=== PATIENT | male | born 1995 | race Hispanic/Latino ===

== ENCOUNTER 2018-07-31 22:40 | Emergency (ER) | payer BC | END 2018-07-31 23:58 | disposition home or self-care (01) | LOC: EDH 22:40 | DX: R07.89 Other chest pain (principal); F41.8 Other specified anxiety disorders; Z79.899 Other long term (current) drug therapy | CPT/HCPCS: 71046; 93005 ==

== ENCOUNTER 2024-02-29 20:59 | Emergency (ER) | payer BC ==
[~2024-02-29] VITALS: Ht 167.6 cm; Wt 90.3 kg
[2024-02-29 22:29] LABS: BASOPHILS # (AUTO) 0.07 K/uL (0.00-0.20); BASOPHILS % (AUTO) 0.7 % (0.0-5.0); EOSINOPHILS # (AUTO) 0.08 K/uL (0.00-0.70); EOSINOPHILS % (AUTO) 0.8 % (0.0-8.0); HEMATOCRIT 44.8 % (42-54); IMMATURE GRANULOCYTE ABSOLUTE 0.03 K/uL (0-1); LYMPHOCYTES # (AUTO) 1.9 K/uL (1.0-4.8); LYMPHOCYTES % (AUTO) 17.8 % (21.0-51.0); MEAN CORPUSCULAR HEMOGLOBIN 31.5 pg (27.0-33.0); MEAN CORPUSCULAR HGB CONC 36.2 g/dL (32.0-36.0); MEAN CORPUSCULAR VOLUME 87.2 fL (79-99); MONOCYTES # (AUTO) 0.5 K/uL (0.1-1.0); MONOCYTES % (AUTO) 5.1 % (3.0-13.0); NEUTROPHILS % (AUTO) 75.3 % (40.0-77.0); PLATELET COUNT (AUTO) 177 K/uL (130-400); RED BLOOD CELL COUNT(AUTO) 5.14 MIL/uL (4.50-6.20); RED CELL DISTRIBUTION WIDTH 12.3 % (11.0-15.5); WHITE BLOOD COUNT (AUTO) 10.6 K/uL (4.8-10.8)
--- NOTE | 2024-02-29 23:04 | EKG ---
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
[2024-02-29 23:18] LABS: INR 1.03 (0.85-1.15); PROTHROMBIN TIME 11.5 SEC (9.6-11.6)
[2024-02-29 23:19] LABS: PARTIAL THROMBOPLASTIN TIME 29.7 SEC (26.3-35.5)
[2024-02-29 23:22] LABS: APPEARANCE,URINE CLEAR (CLEAR); BILIRUBIN,URINE NEGATIVE (NEGATIVE); COLOR,URINE LIGHT-YELLOW (YELLOW); GLUCOSE, URINE (UA) NEGATIVE (NEGATIVE); KETONES,URINE 20 mg/dL (NEGATIVE); LEUKOCYTE ESTERASE ,URINE NEGATIVE Leu/uL (NEGATIVE); NITRATE,URINE NEGATIVE (NEGATIVE); OCCULT BLOOD,URINE NEGATIVE (NEGATIVE); PROTEIN,URINE NEGATIVE (NEGATIVE); UROBILINOGEN,URINE 0.2 mg/dL (0.2-1.0)
[2024-02-29 23:28] LABS: CREATININE 0.9 mg/dL (0.5-1.3); POTASSIUM 3.5 mmol/L (3.5-5.1)
[2024-02-29 23:28] LABS: ADD UA MICROSCOPIC YES; BACTERIA,URINE None Seen /HPF (None Seen); MUCUS,URINE Rare LPF (None Seen); RBC,URINE 0-1 /HPF (0-1); WBC,URINE 0-1 /HPF (0-1)
[2024-02-29] MEDS: PANTOPrazole 40 MG/VIAL IVP ONE (23:51)
[2024-02-29] MEDS: 0.9%NACL 1000ML 1,000 ML IV ONE (23:52)
--- NOTE | 2024-03-01 00:19 | ERN ---
General Chief Complaint: Other Problems Stated Complaint: C/O JAW PAIN WITH DISCOMFORT TO ARMPIT AREA Time Seen by MD: 21:03 Source: patient History of Present Illness Initial Comments PATIENT IS A 28-YEAR-OLD GENTLEMAN COMING IN TO BE EVALUATED FOR LEFT-SIDED CHEST PAIN. PATIENT STATES THAT THE CHEST PAIN HAS BEEN ONGOING FOR SEVERAL MONTHS AND IF FLUCTUATES IN INTENSITY. PATIENT ALSO STATES THAT THE PAIN HAS NEVER BEEN EVALUATED SO HE IS HERE FOR EVALUATION. HE ALSO STATES THAT HE HAS A HISTORY OF ANXIETY. Allergies: Coded Allergies: No Known Drug Allergies (Unverified Allergy, Unknown, 08/01/18) Past Medical History Past Medical History: No Pertinent History Past Surgical History: None ROS Dictation CONSTITUTIONAL: NO CHILLS, NO FEVER, NO WEAKNESS, NO DIAPHORESIS, NO MALAISE. HEAD/FACE: NO SIGNS OF TRAUMA. EENT: NO EYE PAIN, NO BLURRED VISION, NO TEARING, NO DOUBLE VISION, NO EAR PAIN, NO EAR DISCHARGE, NO NOSE PAIN, NO NASAL CONGESTION, NO THROAT PAIN, NO THROAT SWELLING, NO MOUTH PAIN. RESPIRATORY: NO COUGH, NO ORTHOPNEA, NO SOB, NO STRIDOR, NO WHEEZING. CARDIOVASCULAR: CHEST PAIN, NO EDEMA, NO PALPITATIONS, NO SYNCOPE. GASTROINTESTINAL/ABDOMINAL: NO ABDOMINAL PAIN, NO CONSTIPATION, NO DIARRHEA, NO NAUSEA, NO VOMITING. GENITOURINARY: NO ABNORMAL DISCHARGE, NO DYSURIA, NO FREQUENT URINATION, NO HEMATURIA. NO COMPLAINTS OF PAIN IN THE GENITALS. MUSCULOSKELETAL: NO BACK PAIN, NO GOUT, NO JOINT PAIN, NO JOINT SWELLING, NO MUSCLE PAIN, NO MUSCLE STIFFNESS, NO NECK PAIN. INTEGUMENTARY: NO CHANGE IN COLOR, NO CHANGE IN HAIR/NAILS, NO DRYNESS, NO LESION, NO LUMPS, NO RASH. NEUROLOGICAL/PSYCH: NO ANXIETY, NOT DEPRESSED, NO EMOTIONAL PROBLEM, NO HEADACHE, NO NUMBNESS, NO PRE-EXISTING DEFICIT, NO HISTORY OF SEIZURES, NO TREMORS, NO WEAKNESS. HEMATOLOGIC/LYMPHATIC: NOT ANEMIC, NO HISTORY OF BLOOD CLOTS, NO APPARENT BLEEDING, NO BRUISING, GLANDS NOT SWOLLEN. ALL SYSTEMS NEGATIVE, EXCEPT NOTED. Physical Exam Physical Exam Dictation VITAL SIGNS: REVIEWED. GENERAL APPEARANCE: ALERT, ORIENTED X3, NO ACUTE DISTRESS, OBESE. HEAD AND FACE: NON-TRAUMATIC. EYES: PERRL, PINK CONJUNCTIVAS, EYELID NO TRAUMA, ANTERIOR CHAMBER CLEAR. EARS: PINNAS INTACT AND NO SIGNS OF TRAUMA OR ERYTHEMA. EAR CANALS CLEAR AND NO DISCHARGE. TMS NO ERYTHEMA. NOSE: NO DISCHARGE, NO BLEEDING. OROPHARYNX: MOUTH NORMAL, TEETH NO CARIES, TONGUE PINK. PHARYNX CLEAR, NO ERYTHEMA. TONSILS NO EXUDATES, NO ABSCESSES NOTED. MUCOUS MEMBRANE MOIST. NECK: SUPPLE, NON-TENDER, NO THYROMEGALY, NO MASSES, NO JVD, NO BRUITS. BREAST: DEFERRED. CHEST: NO TENDERNESS, NO CREPITUS, NO PARADOXICAL MOVEMENT, NO RETRACTIONS. LUNGS: CLEAR, WELL-VENTILATED, SYMMETRIC, NO RALES, NO WHEEZING, NO RHONCHI, NO STRIDOR, GOOD BREATH SOUNDS BILATERALLY. HEART: REGULAR RATE, REGULAR RHYTHM, NO MURMUR, NO GALLOPS. VASCULAR: NO PERIPHERAL EDEMA. ABDOMEN: SOFT, POSITIVE BOWEL SOUNDS, NONDISTENDED, NO GUARDING, NONTENDER, NO REBOUND, NO MASSES NO HEPATOMEGALY, NO SPLENOMEGALY, NO CARTAGENA'S SIGN, NO HERNIAS. RECTAL: DEFERRED. GENITAL: DEFERRED. NEUROLOGICAL: NORMAL SPEECH, GROSS MOTOR FUNCTION INTACT, GROSS SENSORY FUNCTION INTACT. MUSCULOSKELETAL: NECK NONTENDER, FULL RANGE OF MOTION, BACK NONTENDER, FULL RANGE OF MOTION. EXTREMITIES: NONTENDER, FULL RANGE OF MOTION. SKIN: COLOR PINK, DRY, NO TURGOR, NO RASH, NO LACERATIONS, NO ABRASIONS, NO CONTUSIONS. LYMPHATICS: DEFERRED. Results Laboratory and Microbiology Lab and Micro Result Laboratory Tests Test 02/29/24 21:17 02/29/24 22:17 03/01/24 00:37 Urine Color LIGHT-YELLOW (YELLOW) Urine Appearance CLEAR (CLEAR) Urine pH 6.0 (5.0-8.0) Urine Specific [place] 1.017 (1.001-1.031) Urine Protein NEGATIVE mg/dL (NEGATIVE) Urine Glucose (UA) NEGATIVE mg/dL (NEGATIVE) Urine Ketones 20 mg/dL (NEGATIVE) H Urine Occult Blood NEGATIVE (NEGATIVE) Urine Nitrate NEGATIVE (NEGATIVE) Urine Bilirubin NEGATIVE mg/dL (NEGATIVE) Urine Urobilinogen 0.2 mg/dL (0.2-1.0) Urine Leukocyte Esterase NEGATIVE William/uL Urine RBC 0-1 /HPF (0-1) Urine WBC 0-1 /HPF (0-1) Urine Bacteria None Seen /HPF (None Seen) White Blood Count 10.6 K/uL (4.8-10.8) Red Blood Count 5.14 MIL/uL (4.50-6.20) Hemoglobin 16.2 g/dL (14.0-18.0) Hematocrit 44.8 % (42-54) Mean Corpuscular Volume 87.2 fL (79-99) Mean Corpuscular Hemoglobin 31.5 pg (27.0-33.0) Mean Corpuscular Hemoglobin Concent 36.2 g/dL (32.0-36.0) H Red Cell Distribution Width 12.3 % (11.0-15.5) Platelet Count 177 K/uL (130-400) Mean Platelet Volume 12.4 fL (7.5-10.5) H Immature Granulocyte % (Auto) 0.3 % (0-1) Neutrophils (%) (Auto) 75.3 % (40.0-77.0) Lymphocytes (%) (Auto) 17.8 % (21.0-51.0) L Monocytes (%) (Auto) 5.1 % (3.0-13.0) Eosinophils (%) (Auto) 0.8 % (0.0-8.0) Basophils (%) (Auto) 0.7 % (0.0-5.0) Neutrophils # (Auto) 8.0 K/uL (1.8-7.7) H Lymphocytes # (Auto) 1.9 K/uL (1.0-4.8) Monocytes # (Auto) 0.5 K/uL (0.1-1.0) Eosinophils # (Auto) 0.08 K/uL (0.00-0.70) Basophils # (Auto) 0.07 K/uL (0.00-0.20) Absolute Immature Granulocyte (auto 0.03 K/uL (0-1) Nucleated Red Blood Cells 0.0 % (0.0-0.19) Red Blood Cell Morphology See comments Prothrombin Time 11.5 SEC (9.6-11.6) Prothromb Time International Ratio 1.03 (0.85-1.15) Activated Partial Thromboplast Time 29.7 SEC (26.3-35.5) Sodium Level 144 mmol/L (136-145) Potassium Level 3.5 mmol/L (3.5-5.1) Chloride Level 103 mmol/L (101-111) Carbon Dioxide Level 31 mmol/L (21-32) Blood Urea Nitrogen 13 mg/dL (7-18) Creatinine 0.9 mg/dL (0.5-1.3) Glomerular Filtration Rate Calc 119 mL/min (>90) Random Glucose 133 mg/dL (70-105) H Total Calcium 8.2 mg/dL (8.5-10.1) L Magnesium Level 2.00 mg/dL (1.80-2.40) Total Creatine Kinase 479 U/L (21-232) *H 442 U/L (21-232) *H Troponin I High Sensitivity 5 ng/L (4-75) B-Type Natriuretic Peptide < 5 pg/mL (0-100) Labs Reviewed?: Yes EKG/XRAY/US/CT/MRI EKG Comment 02/29/2024 TIME 10:55 P.M. VENTRICULAR RATE 78 SINUS RHY[address] [place] [address] WAVE ELEVATION OR DEPRESSION X-RAY Comment CHEST X-RAY NAD MDM MDM: DIFFERENTIAL DIAGNOSIS: CHEST PAIN, ANXIETY, ELEVATED CK PATIENT IS A 28-YEAR-OLD GENTLEMAN COMING IN TO BE EVALUATED FOR CHRONIC CHEST PAIN. PATIENT HAS NOT BEEN EVALUATED IN THE PAST IN HIS OCCASION WILL BE EVALUATED IN CARDIAC ENZYMES AND CARDIAC WORKUP NEGATIVE FOR ACUTE FINDINGS. CK MILDLY ELEVATED PATIENT WAS HYDRATED WITH IV FLUIDS REPEAT CK IMPROVED. ED Course Orders Procedure Category Date Status Time Cbc With Differential LAB 02/29/24 Complete 21:35 Prothrombin Time With LAB 02/29/24 Complete INR 22:44 B-Type Natriuretic LAB 02/29/24 Complete Peptide 22:44 Chest 1vw RAD 02/29/24 Taken 22:44 12 Lead Ekg Tracing- EKG 02/29/24 Complete Technical 22:44 Magnesium LAB 02/29/24 Complete 22:44 Creatine Kinase, Total LAB 02/29/24 Complete 22:44 Troponin I High LAB 02/29/24 Complete Sensitivity 22:44 Urinalysis Profile LAB 02/29/24 Complete 22:44 Partial LAB 02/29/24 Complete Thromboplastin Time 22:44 Basic Metabolic Panel LAB 02/29/24 Complete 22:44 Pantoprazole 40mg Inj PHA 03/01/24 Complete (Protonix 40mg Inj 00:00 0.9%Nacl 1000ml (Ns PHA 03/01/24 Complete 1000ml) 00:00 Creatine Kinase, Total LAB 03/01/24 In Process 00:13 0.9%Nacl 1000ml (Ns PHA 03/01/24 Complete 1000ml) 00:30 Current Medications Medications (Trade) Dose Ordered Sig/Mary Route PRN Reason Start Time Stop Time Status Last Admin Dose Admin Pantoprazole Sodium (PROTonix 40MG INJ) 40 mg ONCE ONCE IVP 03/01/24 00:00 03/01/24 00:01 DC 02/29/24 23:51 Sodium Chloride 1,000 ml @ 0 mls/hr ONCE ONCE IV 03/01/24 00:00 03/01/24 00:01 DC 02/29/24 23:52 Sodium Chloride 1,000 ml @ 0 mls/hr ONCE ONCE IV 03/01/24 00:30 03/01/24 00:31 DC 03/01/24 00:29 Vital Signs Date Time Temp Pulse Resp B/P (MAP) Pulse Ox O2 Delivery O2 Flow Rate FiO2 03/01/24 01:15 98.1 74 18 141/82 98 Room Air* 0 21 02/29/24 23:58 98.1 74 18 146/84 98 Room Air* 0 21 02/29/24 22:56 77 18 135/84 98 Room Air* 0 02/29/24 21:03 98.1 83 20 163/100 98 Room Air DX & DISP Disposition: Discharge Departure Impression: Primary Impression: Anxiety Additional Impression: Elevated CK Condition: Stable Additional Instructions: FOLLOW-UP WITH PRIMARY CARE PROVIDER IN 1 TO 2 DAYS. TAKE MEDICATIONS DIRECTED HERE IN THE EMERGENCY ROOM. OKAY TO CONTINUE HOME MEDICATIONS UNLESS OTHERWISE DISCUSSED DURING YOUR VISIT IN THE EMERGENCY ROOM TODAY. RETURN TO YOUR NEAREST EMERGENCY ROOM IF SYMPTOMS WORSEN OR IF THERE IS NO IMPROVEMENT. CALL 911 IF YOU NEED IMMEDIATE ASSISTANCE. TAKE TYLENOL [id number] NEEDED AND IF NO CONTRAINDICATIONS ARE PRESENT. INCREASE ORAL HYDRATION. A WOUND CULTURE OR URINE CULTURE WAS ORDERED HERE IN THE EMERGENCY ROOM DEPARTMENT PLEASE FOLLOW-UP WITH PRIMARY CARE PROVIDER AND ADVISE THEM TO GET REPEAT PORTS FROM OUR FACILITY. IF YOU HAD ANY JAY WRAP/SPLINTS THAT WERE APPLIED HERE, PLEASE DO NOT REMOVE THEM UNTIL YOU SEE YOUR PRIMARY CARE OR SPECIALTY. REFERRALS: Referrals: DALLAS KOO MD (PCP) Time of Disposition: 01:32 AMAURY MENSAH MD Mar 01, 2024 00:19
[2024-03-01] MEDS: 0.9%NACL 1000ML 1,000 ML IV ONE (00:29)
[2024-03-01 01:15] VITALS: BP 141/82; PULSE 74; RESP 18; TEMP 98.1; O2SAT 98
--- NOTE | 2024-03-01 08:29 | HMCIMG ---
CHEST 1VW REASON: cp COMPARISON: 07/31/2018 FINDINGS: Single view of the chest was obtained. Lungs are clear. Heart size is normal. There is no pulmonary vascular congestion. Mediastinum and bony thorax appear unremarkable. IMPRESSION: 1. Normal single view chest x-ray.
== END 2024-03-01 01:44 | disposition home or self-care (01) ==
LOC: EDH 20:59
DX: F41.9 Anxiety disorder, unspecified (principal); R74.8 Abnormal levels of other serum enzymes
CPT/HCPCS: 99284; 96374; 71045; 96361 ×2; 82550 ×2; 83735; 84484; 80048; 83880; 85025; 85610; 85730; 81001; 36415 ×2; 93005; J7030; J2470